=== PATIENT | male | born 1985 | race African-American/Black ===

== ENCOUNTER 2019-03-14 17:33 | Inpatient (IN) | payer OTHER ==
[2019-03-14 22:07] VITALS: BMI 24.0
--- NOTE | 2019-03-14 22:35 | HP ---
CIWA Score Nausea/Vomitin Muscle Tremors: 5 Anxiety: 4-Mod. Anxious/Guarded Agitation: 2 Paroxysmal Sweats: 3 Orientation: 0-Oriented Tacttile Disturbances: 0-None Auditory Disturbances: 0-None Visual Disturbances: 0-None Headache: 0-None Present CIWA-Ar Total Score: 16 - Admission Criteria OASAS Guidelines: Admission for Medically Managed Detox: Requires at least one of the followin. CIWA greater than 12 2. Seizures within the past 24 hours 3. Delirium tremens within the past 24 hours 4. Hallucinations within the past 24 hours 5. Acute intervention needed for co occurring medical disorder 6. Acute intervention needed for co occurring psychiatric disorder 7. Severe withdrawal that cannot be handled at a lower level of care (continued vomiting, continued diarrhea, abnormal vital signs) requiring intravenous medication and/or fluids 8. Admission ROS [facility] Chief Complaint: Alcohol withdrawal symptoms Allergies/Adverse Reactions: Allergies Allergy/AdvReac Type Severity Reaction Status Date / Time Fish Containing Products Allergy Verified 03/14/19 22:00 History of Present Illness: 34 years old male with 29 years of alcohol dependence is seeking admission to detox. Patient reports last detox at [facility] and reports insignificant period of sobriety. He denies past medical history and denies suicidal ideation at this time. This is his first admission to [facility] Exam Limitations: No Limitations, Intoxication - Ebola screening Have you traveled outside of the country in the last 21 days: No (N) Have you had contact with anyone from an Ebola affected area: No Do you have a fever: No - Review of Systems Constitutional: Chills, Malaise, Night Sweats EENT: reports: No Symptoms Reported, Nose Congestion Respiratory: reports: No Symptoms reported Cardiac: reports: No Symptoms Reported GI: reports: Poor Appetite, Vomiting, Abdominal cramping : reports: No Symptoms Reported Musculoskeletal: reports: No Symptoms Reported Integumentary: reports: Dryness, Flushing Neuro: reports: Headache, Tremors Endocrine: reports: No Symptoms Reported Hematology: reports: No Symptoms Reported Psychiatric: reports: No Sypmtoms Reported, Judgement Intact, Orientated x3, Anxious Other Systems: Reviewed and Negative Patient History - Patient Medical History Hx Anemia: No Hx Asthma: No Hx Chronic Obstructive Pulmonary Disease (COPD): No Hx Cancer: No Hx Cardiac Disorders: No Hx Congestive Heart Failure: No Hx Hypertension: No Hx Hypercholesterolemia: No Hx Pacemaker: No HX Cerebrovascular Accident: No Hx Seizures: No Hx Dementia: No Hx Diabetes: No Hx Gastrointestinal Disorders: No Hx Liver Disease: No Hx Genitourinary Disorders: No Hx Sexually Transmitted Disorders: No Hx Renal Disease (ESRD): No Hx Thyroid Disease: No Hx Human Immunodeficiency Virus (HIV): No (Negative 2019) Hx Hepatitis C: No Hx Depression: No Hx Suicide Attempt: No (Denies suicidal ideation at this time) Hx Bipolar Disorder: No Hx Schizophrenia: No - Patient Surgical History Past Surgical History: No - PPD History Previous Implant?: Yes Documented Results: Negative w/o proof Implanted On Prior [facility] Admission?: No PPD to be Administered?: Yes - Reproductive History Patient is a Female of Child Bearing Age (11 -55 yrs old): No (male) - Smoking Cessation Smoking history: Former smoker Have you smoked in the past 12 months: No Hx Chewing Tobacco Use: No Initiated information on smoking cessation: No - Substance & Tx. History Hx Alcohol Use: No Hx Substance Use: Yes Hx Substance Use Treatment: Yes - Substances abused Alcohol Substance route: Oral Frequency: Daily Amount used: 1 liter of vodka/day Age of first use: 15 Date of last use: 03/14/19 Admission Physical Exam [facility] - Vital Signs Vital Signs: Vital Signs - 24 hr 03/14/19 21:56 Temperature 100.2 F H Pulse Rate 103 H Respiratory 18 Rate Blood Pressure 180/110 H - Physical General Appearance: Yes: Moderate Distress, Tremorous, Sweating, Anxious HEENTM: Yes: Within Normal Limits, EOMI, Normal ENT Inspection, Normocephalic, Normal Voice, CHRISSY Respiratory: Yes: Lungs Clear, Normal Breath Sounds, No Respiratory Distress Neck: Yes: Supple Breast: Yes: Breast Exam Deferred Cardiology: Yes: Tachycardia Abdominal: Yes: Normal Bowel Sounds, Soft Genitourinary: Yes: Within Normal Limits Musculoskeletal: Yes: Within Normal Limits Extremities: Yes: Tremors Neurological: Yes: Within Normal Limits, Fully Oriented, Normal Mood/Affect Integumentary: Yes: Warm Lymphatic: Yes: Within Normal Limits - Diagnostic (1) Opioid dependence with withdrawal Current Visit: Yes Status: Chronic (2) Nicotine dependence Current Visit: Yes Status: Chronic Qualifiers: Nicotine product type: cigarettes Substance use status: uncomplicated Qualified Code(s): F17.210 - Nicotine dependence, cigarettes, uncomplicated Cleared for Admission [facility] - Detox or Rehab [facility] Level of Care: Medically Managed Detox Regimen/Protocol: Librium Breathalyzer - Breathalyzer Breathalyzer: 0 Urine Drug Screen - Test Device Lot number: [id number] Expiration date: 11/22/20 - Control Is test valid?: Yes - Results Drug screen NEGATIVE: No Urine drug screen results: BZO-Benzodiazepines Inpatient Rehab Admission - Rehab Decision to Admit Inpatient rehab admission?: No
[2019-03-14] MEDS ORDERED: MENTHOL/PHENOL 1 EACH UD MM PRN (22:47)
[2019-03-14] MEDS ORDERED: MAG HYDROX/AL HYDROX/SIMETH 30 ML UNIT-DOSE CUP PO PRN (22:47)
[2019-03-14] MEDS ORDERED: MAGNESIUM HYDROX 2400MG/30ML ORAL SUSPENSION 30 ML CUP PO PRN (22:47)
[2019-03-14] MEDS ORDERED: hydrOXYzine PAMOATE 25 MG CAPSULE (FP) PO PRN (22:47)
[2019-03-14] MEDS ORDERED: MAGNESIUM CITRATE 300 ML BOTTLE PO PRN (22:47)
[2019-03-14] MEDS ORDERED: METHOCARBAMOL 500 MG TABLET PO PRN (22:47)
[2019-03-14] MEDS ORDERED: chlordiazePOXIDE HCL 25 MG CAPSULE PO PRN (22:47)
[2019-03-14] MEDS ORDERED: IBUPROFEN 400 MG TABLET (FP) PO PRN (22:47)
[2019-03-14] MEDS ORDERED: BISMUTH SUBSALICYLATE 524 MG/30 ML UD PO PRN (22:47)
[2019-03-14] MEDS ORDERED: ACETAMINOPHEN 325 MG TABLET (FP) PO PRN ×2 (22:47)
[2019-03-15] MEDS: chlordiazePOXIDE HCL 25 MG CAPSULE PO SCH ×5 (00:18→22:13)
[2019-03-15] MEDS ORDERED: METHADONE HCL 10 MG TABLET PO ONE (08:45)
[2019-03-15] MEDS ORDERED: PNEUMOCOCCAL 23 VACCINE 0.5 ML VIAL IM ONE (10:00)
[2019-03-15 10:17] LABS: HEMOGLOBIN 12.2 GM/dL (11.7-16.9); MCH 29.9 pg (25.7-33.7); MCHC 32.9 g/dl (32.0-35.9); MEAN CELL VOLUME 91.1 fl (80-96); MEAN PLT VOLUME 9.1 fl (7.5-11.1); PLATELET COUNT 215 K/MM3 (134-434); RBC 4.06 M/mm3 (4.00-5.60); RDW 17.1 % (11.9-15.9); WHITE BLOOD COUNT 7.1 K/mm3 (4.0-10.0)
[2019-03-15 10:23] LABS: ALBUMIN 3.5 g/dl (3.4-5.0); BILIRUBIN,TOTAL 0.8 mg/dL (0.2-1); BLOOD UREA NITROGEN 7.1 mg/dL (7-18); CALCIUM 9.1 mg/dL (8.5-10.1); CREATININE 0.7 mg/dL (0.55-1.3); POTASSIUM 4.1 mmol/L (3.5-5.1); TOT PROT 7.2 g/dl (6.4-8.2)
--- NOTE | 2019-03-15 11:09 | PN ---
[facility] CIWA - CIWA Score Nausea/Vomitin-No Nausea/No Vomiting Muscle Tremors: 3 Anxiety: 3 Agitation: 3 Paroxysmal Sweats: 2 Orientation: 0-Oriented Tacttile Disturbances: 0-None Auditory Disturbances: 0-None Visual Disturbances: 0-None Headache: 0-None Present CIWA-Ar Total Score: 11 S Progress Note (SOAP) Subjective: sweats shakes body aches chills Objective: 03/15/19 11:08 Vital Signs Temperature 99.1 F 03/15/19 09:36 Pulse Rate 96 H 03/15/19 09:36 Respiratory Rate 18 03/15/19 09:36 Blood Pressure 153/84 03/15/19 09:36 O2 Sat by Pulse Oximetry (%) Laboratory Tests 03/15/19 03/15/19 08:15 08:15 WBC 7.1 RBC 4.06 Hgb 12.2 Hct 37.0 MCV 91.1 MCH 29.9 MCHC 32.9 RDW 17.1 H Plt Count 215 MPV 9.1 Sodium 137 Potassium 4.1 Chloride 103 Carbon Dioxide 29 Anion Gap 6 L BUN 7.1 Creatinine 0.7 Est GFR (CKD-EPI)AfAm 141.70 Est GFR (CKD-EPI)NonAf 122.26 Random Glucose 90 Calcium 9.1 Total Bilirubin 0.8 AST 26 ALT 30 Alkaline Phosphatase 61 Total Protein 7.2 Albumin 3.5 labs noted aaox3 ambulating no acute distress Assessment: 03/15/19 11:09 withdrawal sx Plan: continue detox increase fluids
[2019-03-15] MEDS ORDERED: PNEUMOC 13-VAL CONJ-DIP CRM/PF 0.5 ML DISP.SYRIN IM ONE (12:00)
[2019-03-15] MEDS: PRENATAL VITAMINS W/ FOLIC ACID TABLET (FP) PO SCH (12:16)
[2019-03-15] MEDS: THIAMINE HCL 100 MG TABLET (FP) PO SCH (22:13)
[2019-03-15] MEDS: MELATONIN 5 MG TABLETS PO PRN (22:14)
[2019-03-16] MEDS: chlordiazePOXIDE HCL 25 MG CAPSULE PO SCH ×4 (05:14→22:05)
[2019-03-16] MEDS ORDERED: METHADONE HCL 40 MG DISPERSABLE TABLET PO SCH (06:00)
[2019-03-16] MEDS: PRENATAL VITAMINS W/ FOLIC ACID TABLET (FP) PO SCH (10:29)
--- NOTE | 2019-03-16 10:30 | PN ---
S CIWA - CIWA Score Nausea/Vomitin-No Nausea/No Vomiting Muscle Tremors: 3 Anxiety: 3 Agitation: 3 Paroxysmal Sweats: 1-Minimal Palms Moist Orientation: 0-Oriented Tacttile Disturbances: 0-None Auditory Disturbances: 0-None Visual Disturbances: 0-None Headache: 0-None Present CIWA-Ar Total Score: 10 [facility] Progress Note (SOAP) Subjective: sweats shakes interrupted sleep body aches Objective: 03/16/19 10:26 Vital Signs Temperature 97.2 F L 03/16/19 06:23 Pulse Rate 73 03/16/19 06:23 Respiratory Rate 18 03/16/19 06:23 Blood Pressure 146/96 03/16/19 06:23 O2 Sat by Pulse Oximetry (%) Laboratory Tests 03/15/19 03/15/19 03/15/19 08:15 08:15 08:15 WBC 7.1 RBC 4.06 Hgb 12.2 Hct 37.0 MCV 91.1 MCH 29.9 MCHC 32.9 RDW 17.1 H Plt Count 215 MPV 9.1 Sodium 137 Potassium 4.1 Chloride 103 Carbon Dioxide 29 Anion Gap 6 L BUN 7.1 Creatinine 0.7 Est GFR (CKD-EPI)AfAm 141.70 Est GFR (CKD-EPI)NonAf 122.26 Random Glucose 90 Calcium 9.1 Total Bilirubin 0.8 AST 26 ALT 30 Alkaline Phosphatase 61 Total Protein 7.2 Albumin 3.5 RPR Titer Nonreactive labs noted aaox3 ambulating no acute distress Assessment: 03/16/19 10:29 withdrawal sx Plan: continue detox increase fluids
[2019-03-16] MEDS: THIAMINE HCL 100 MG TABLET (FP) PO SCH (21:27)
[2019-03-17] MEDS ORDERED: chlordiazePOXIDE HCL 10 MG CAPSULE PO PRN
[2019-03-17] MEDS: chlordiazePOXIDE HCL 10 MG CAPSULE PO SCH ×4 (05:30→22:20)
[2019-03-17] MEDS ORDERED: cloNIDine HCL 0.1 MG TABLET PO ONE (09:08)
[2019-03-17] MEDS: PRENATAL VITAMINS W/ FOLIC ACID TABLET (FP) PO SCH (10:29)
[2019-03-17] MEDS ORDERED: cloNIDine HCL 0.1 MG TABLET PO PRN (11:47)
--- NOTE | 2019-03-17 11:50 | PN ---
S CIWA - CIWA Score Nausea/Vomitin-No Nausea/No Vomiting Muscle Tremors: 3 Anxiety: 2 Agitation: 2 Paroxysmal Sweats: 1-Minimal Palms Moist Orientation: 0-Oriented Tacttile Disturbances: 0-None Auditory Disturbances: 0-None Visual Disturbances: 0-None Headache: 0-None Present CIWA-Ar Total Score: 8 [facility] Progress Note (SOAP) Subjective: mild shake sweats anxiety Objective: 03/17/19 11:49 Vital Signs Temperature 99.7 F H 03/17/19 09:48 Pulse Rate 94 H 03/17/19 09:48 Respiratory Rate 18 03/17/19 09:48 Blood Pressure 154/95 03/17/19 09:48 O2 Sat by Pulse Oximetry (%) Laboratory Tests 03/15/19 03/15/19 03/15/19 08:15 08:15 08:15 WBC 7.1 RBC 4.06 Hgb 12.2 Hct 37.0 MCV 91.1 MCH 29.9 MCHC 32.9 RDW 17.1 H Plt Count 215 MPV 9.1 Sodium 137 Potassium 4.1 Chloride 103 Carbon Dioxide 29 Anion Gap 6 L BUN 7.1 Creatinine 0.7 Est GFR (CKD-EPI)AfAm 141.70 Est GFR (CKD-EPI)NonAf 122.26 Random Glucose 90 Calcium 9.1 Total Bilirubin 0.8 AST 26 ALT 30 Alkaline Phosphatase 61 Total Protein 7.2 Albumin 3.5 RPR Titer Nonreactive aaox3 ambulating no acute distress Assessment: 03/17/19 11:49 withdrawals Plan: continue detox increase fluids clonidine 0.1 mg prn ordered for HTN control
[2019-03-17] MEDS: MELATONIN 5 MG TABLETS PO PRN (22:20)
[2019-03-17] MEDS: THIAMINE HCL 100 MG TABLET (FP) PO SCH (22:20)
[2019-03-17] MEDS ORDERED: IBUPROFEN 400 MG TABLET (FP) PO ONE (23:31)
[2019-03-17] MEDS ORDERED: LIDOCAINE VISCOUS 2% ORAL/TOP 20 ML UNIT-DOSE CUP MM PRN (23:33)
[2019-03-18] MEDS: chlordiazePOXIDE HCL 10 MG CAPSULE PO SCH ×2 (06:04→17:59)
[2019-03-18] MEDS: IBUPROFEN 400 MG TABLET (FP) PO PRN ×3 (06:08→19:37)
[2019-03-18] MEDS: PRENATAL VITAMINS W/ FOLIC ACID TABLET (FP) PO SCH (10:18)
--- NOTE | 2019-03-18 16:41 | PN ---
[facility] CIWA - CIWA Score Nausea/Vomitin-No Nausea/No Vomiting Muscle Tremors: 3 Anxiety: 2 Agitation: 1-Slight > Activity Paroxysmal Sweats: 2 Orientation: 0-Oriented Tacttile Disturbances: 0-None Auditory Disturbances: 0-None Visual Disturbances: 0-None Headache: 0-None Present CIWA-Ar Total Score: 8 [facility] Progress Note (SOAP) Subjective: Sweating, Tremors. Objective: PATIENT A & O X 3, OBSERVED AMBULATING ON DETOX UNIT UNASSISTED. IN NO ACUTE DISTRESS. 03/18/19 16:40 Vital Signs Temperature 98.1 F 03/18/19 13:56 Pulse Rate 98 H 03/18/19 13:56 Respiratory Rate 16 03/18/19 13:56 Blood Pressure 148/95 03/18/19 13:56 O2 Sat by Pulse Oximetry (%) Laboratory Tests 03/15/19 03/15/19 03/15/19 08:15 08:15 08:15 WBC 7.1 RBC 4.06 Hgb 12.2 Hct 37.0 MCV 91.1 MCH 29.9 MCHC 32.9 RDW 17.1 H Plt Count 215 MPV 9.1 Sodium 137 Potassium 4.1 Chloride 103 Carbon Dioxide 29 Anion Gap 6 L BUN 7.1 Creatinine 0.7 Est GFR (CKD-EPI)AfAm 141.70 Est GFR (CKD-EPI)NonAf 122.26 Random Glucose 90 Calcium 9.1 Total Bilirubin 0.8 AST 26 ALT 30 Alkaline Phosphatase 61 Total Protein 7.2 Albumin 3.5 RPR Titer Nonreactive LABS NOTED. Assessment: 03/18/19 16:41 WITHDRAWAL SYMPTOMS. Plan: CONTINUE DETOX. PATIENT SCHEDULED FOR D/C FROM DETOX UNIT TOMORROW.
[2019-03-18] MEDS: THIAMINE HCL 100 MG TABLET (FP) PO SCH (21:23)
[2019-03-19] MEDS: IBUPROFEN 400 MG TABLET (FP) PO PRN (03:02)
[2019-03-19] MEDS ORDERED: chlordiazePOXIDE HCL 10 MG CAPSULE PO ONE (05:00)
[2019-03-19 06:43] VITALS: BP 138/63; PULSE 99; TEMP 98.1
--- NOTE | 2019-03-19 17:18 | DS ---
[facility] Detox Discharge Summary Admission Date: 03/14/19 Discharge Date: 03/19/19 - History Present History: Alcohol Dependence Additional Comments: Patient completed detox successfully and discharged safely. Patient to follow up with PCP within 1-2 weeks. Patient left in stable condition. Pertinent Past History: Denies - Physical Exam Results Vital Signs: Vital Signs Temperature 98.1 F 03/19/19 06:42 Pulse Rate 99 H 03/19/19 06:42 Respiratory Rate 18 03/19/19 06:42 Blood Pressure 138/63 03/19/19 06:42 O2 Sat by Pulse Oximetry (%) Noted with elevated b/p: denies htn, most likely r/t withdrawal, follow up with PCP for monitoring Pertinent Admission Physical Exam Findings: Withdrawal sxs Laboratory Tests 03/15/19 03/15/19 03/15/19 08:15 08:15 08:15 WBC 7.1 RBC 4.06 Hgb 12.2 Hct 37.0 MCV 91.1 MCH 29.9 MCHC 32.9 RDW 17.1 H Plt Count 215 MPV 9.1 Sodium 137 Potassium 4.1 Chloride 103 Carbon Dioxide 29 Anion Gap 6 L BUN 7.1 Creatinine 0.7 Est GFR (CKD-EPI)AfAm 141.70 Est GFR (CKD-EPI)NonAf 122.26 Random Glucose 90 Calcium 9.1 Total Bilirubin 0.8 AST 26 ALT 30 Alkaline Phosphatase 61 Total Protein 7.2 Albumin 3.5 RPR Titer Nonreactive Labs reviewed - Treatment Hospital Course: Detox Protocol Followed, Detoxed Safely, Responded well, Discharged Condition Good - Medication Discharge Medications: Ambulatory Orders NK [No Known Home Medication] 03/14/19 - Diagnosis (1) Opioid dependence on agonist therapy Status: Chronic (2) Alcohol dependence with withdrawal, uncomplicated Status: Acute (3) Elevated blood-pressure reading, without diagnosis of hypertension Status: Acute - AMA Did Patient Leave Against Medical Advice: No (Patient to follow up with PCP in 1 -2 weeks)
== END 2019-03-19 06:48 | disposition home or self-care (01) | DRG 773 ==
LOC: YASAS 17:33 → Y6N 23:06
PROVIDERS: ADMIT Allergy & Immunology; ATTEND Allergy & Immunology
PROC: HZ2ZZZZ Detoxification Services for Substance Abuse Treatment (ICD-10-PCS; principal; 2019-03-14)
DX: F10.230 Alcohol dependence with withdrawal, uncomplicated (principal); F11.20 Opioid dependence, uncomplicated; R03.0 Elevated blood-pressure reading, without diagnosis of hypertension; Z91.013 Allergy to seafood
CPT/HCPCS: 36415; 80053; 85027; 86593; J0735